=== PATIENT | female | born 1940 | race Caucasian/White ===

== ENCOUNTER → 2023-12-29 14:03 | Outpatient (REF) | payer MEDICARE, BC, SELFPAY | LOC: RAD 14:03 | PROVIDERS: ATTENDING PHYSICIAN Internal Medicine | DX: R05.3 Chronic cough (principal) | CPT/HCPCS: 71046 ==

== ENCOUNTER 2024-02-17 16:46 | Emergency (ER) | payer MEDICARE, BC, SELFPAY ==
[2024-02-17] VITALS (7 sets, daily range): BP systolic 146–169; BP diastolic 56–78; BMI 24.2
[2024-02-17 17:13] LABS: % Basophils 0.4 % (0-2); % Eosinophils 0.4 % (0-6); % Immature Granulocytes 0.4 % (0-0.5); % Lymphocytes 12.2 % (20.5-51.1); % Monocytes 5.2 % (1.7-9.3); % Neutrophils 81.4 % (42.2-75.2); Absolute Monocytes 0.4 10^3/uL (0.1-0.6); Absolute Neutrophils 6.7 10^3/uL (1.4-6.5); Hemoglobin 12.5 g/dL (12.0-16.0); Mean Corp Hgb Conc. 32.9 g/dL (33.0-37.0); Mean Corpuscular Hgb 27.8 pg (27.0-31.0); Mean Corpuscular Volume 84.6 fL (81.0-99.0); Mean Platelet Volume 8.6 fL (7.4-10.4); Nucleated Red Blood Cells % 0 %; Platelet Count 219 10^3/uL (130-400); Red Blood Cell Count 4.49 10^6/uL (4.20-5.40); Red Cell Dist. Width 16.1 % (11.5-14.5); White Blood Cell Count 8.3 10^3/uL (4.8-10.8)
[2024-02-17 17:22] LABS: ALT (SGPT) 15 U/L (0-35); AST (SGOT) 21 U/L (14-36); Alkaline Phosphatase 88 U/L (38-126); Blood Urea Nitrogen 9 mg/dl (7-17); Calcium 9.7 mg/dl (8.4-10.2); Carbon Dioxide 25 mmol/L (22-30); Chloride 100 mmol/L (98-107); Estimated Creatinine Clearance 50 ml/min; Glucose 122 mg/dl (70-99); Potassium 4.6 mmol/L (3.5-5.1); Sodium 137 mmol/L (135-145); Total Bilirubin 0.2 mg/dl (0.2-1.3); Total Protein 6.5 g/dl (6.3-8.2); eGFR > 60.00
[2024-02-17] MEDS: LOPRESSOR 12.5 MG PO (18:42)
[2024-02-17] MEDS: ZOFRAN ODT (ORALLY DISINTEGRATING) 4 MG PO (18:42)
--- NOTE | 2024-02-17 18:50 | ED.GENMED ---
History of Present Illness
General
Chief Complaint: Weakness
Source: patient and records
Exam Limitations: none
Time Seen by Provider: 02/17/24 17:25
Nursing documentation reviewed up to this point in time: agreed with
History of Present Illness
History of Present Illness:
Patient is an 83-year-old female who presents to the emergency department stating she feels funny in her head and her blood pressure was up. Started today. Patient denies any previous history. Patient does feel unsteady. Patient states that when
she turns her head or changes position is when she starts feeling unsteady and as though the room is moving. Patient gets waves of nausea with it but is not vomiting. Patient denies any headaches, tinnitus, visual changes. Patient denies any
focal weakness or speech difficulties. Patient states that she feels tight in her head but no headaches. Patient denies any recent injuries, falls, illnesses. Patient denies any fever or chills, upper respiratory symptoms. Patient denies chest
pain, shortness of breath or palpitations. Patient denies any previous history of similar episodes
Past History
Past History
ED Past Medical History: CVA, HTN, NIDDM, Other (ADRENAL INSUFFICIENCY, ELEVATED CHOLESTEROL, DVT/PE) and Other (Hypertension, previous stroke)
ED Past Surgical History: Negative Cardiac
Social History
Tobacco: Non-smoker
Alcohol: None
Drug: None
Personal: Other
Living: alone
Employment: Retired
Family History
Family History: Other (stroke)
Review of Systems
Review of Systems
All Other Systems: ROS reviewed and negative except as documented in HPI and ROS
Constitutional: Reports fatigue; Denies fever or chills
EENT: Reports no symptoms
Respiratory: Reports no symptoms
Cardiac: Reports no symptoms
ABD/GI: Reports nausea; Denies abdominal pain, vomiting, diarrhea or constipated
: Reports no symptoms
Musculoskeletal: Reports no symptoms
Skin: Reports no symptoms
Neurological: Denies dizzy, headache, weakness or numbness
Hematologic/Lymphatic: Reports no symptoms
Phy Exam
Physical Exam
Physical Exam:
Physical Exam
General: No apparent distress, alert and appropriate, well nourished, well hydrated
HENT: Normocephalic, supple with no lymphadenopathy, no thyromegaly
Eyes: Clear sclera, conjuctiva without injection, visual maldonado intact, no nystagmus
Heart: Regular rhythm and rate. No S3, S4. No murmur. No NVD, bruit
Lungs: No respiratory distress, no stridor, lung sounds clear and equal bilaterally
Abdomen: Soft, nontender, no organomegaly, no CVA tenderness, BS good
Neuro: Alert and oriented x 3, CN II - XII intact, no motor focality, no cerebellar dysfunction
Skin: no rash
Psychiatric: well kept. interactive and cooperative
Extremities: No edema, cyanosis, tenderness, Good and equal peripheral pulses.
Scores
Heart Failure Risk
Heart Failure Risk Score: Not Applicable
Heart Score for Chest Pain Patients
STEMI patient?: Not applicable
Withdrawal Assessment of Alcohol
Withdrawal Assessment Completed?: Not applicable
Course
Orders/Labs/Results
Orders:
Orders
02/17/24 16:57
Complete Blood Count/With Diff Urgent
Comprehensive Metabolic Panel Urgent
02/17/24 17:40
Ondansetron Orally Disint [Zofran Odt (Orally Disintegrating)] 4 mg PO NOW STA
02/17/24 17:41
CT Head W/o Iv Contrast Urgent
Comment:
Reason For Exam: elevated bp with vertigo
02/17/24 17:42
Electrocardiogram (*1) Urgent
Reason for Study: Vertigo / Dizzy
EKG- Treatment ONCE
02/17/24 18:29
Metoprolol [Lopressor] 12.5 mg PO NOW STA
02/17/24 20:13
Meclizine [Antivert] 25 mg PO NOW STA
Abnormal Lab Results
02/17/24
16:57
MCHC 32.9 L g/dL
(33.0-37.0)
RDW 16.1 H %
(11.5-14.5)
Absolute Neuts (auto) 6.7 H 10^3/uL
(1.4-6.5)
Absolute Lymphs (auto) 1.0 L 10^3/uL
(1.2-3.4)
Neutrophils % 81.4 H %
(42.2-75.2)
Lymphocytes % 12.2 L %
(20.5-51.1)
Glucose 122 H mg/dl
(70-99)
02/17/24 16:57
02/17/24 16:57
Vital Signs
Initial and Last Documented VS:
Initial Vital Signs
Temp Pulse Resp BP Pulse Ox
98.8 F 63 16 169/73 98
02/17/24 16:51 02/17/24 16:51 02/17/24 16:51 02/17/24 16:51 02/17/24 16:51
Last Documented Vital Signs
Temp Pulse Resp BP Pulse Ox
98.8 F 60 16 158/56 96
02/17/24 16:51 02/17/24 22:00 02/17/24 16:51 02/17/24 22:00 02/17/24 22:00
*Radiology
Radiology exam reviewed: radiology read reviewed
*Pulse Oximetry
Patient hypoxic: no
*EKG
Interpreted by ED Provider?: Yes
EKG Intrepretation Date: 02/17/24
EKG Intrepretation Time: 21:06
Interpretation: abnormal
Comparison EKG: no changes
Heart Rate: 62
Rate: normal
Rhythm: sinus
[place]: left axis deviation
Interval: normal interval
QRS Pattern: left vent hypertrophy
Ischemia: non-specific ST changes
*Squad Boss Interpretation
Rate: normal
Interpretation: normal
Heart Rate: 62
Rhythm: sinus
*Critical Care Note
Total Time (30-74mins, 75-104mins- exclusive of procedures): Not Applicable
Update Note
Update Note:
This appears to be a positional vertigo. Patient's blood pressure will be increased to 25 mg a day from -05/11. In addition the patient will be placed on Antivert
ED Attending Note
-
Portions of this chart may have been created with voice recognition software.� Occasional wrong word or��sound alike� substitutions may have occurred due to the inherent limitations of voice recognition software.
Discharge Plan
Departure
Patient Disposition: Senior Living/SNF
Date of Disposition: 02/17/24
Time of Disposition: 21:08
Patient with high blood pressure during this ER visit?: Yes
Condition: Fair
Covid-19: Not Applicable
Discharge Problem:
Vertigo, Hypertension
Instructions: Vertigo (a type of dizziness), Vestibular Exercises, BLOOD PRESSURE, Hypertention
Prescriptions:
New
meclizine [Antivert] 25 mg Tablet,Chewable
25 mg PO Q8HPRN PRN (Reason: nausea or vertigo) Qty: 25 0RF
No Action
prednisone 5 mg Tablet
5 mg PO DAILY
methenamine hippurate 1 gram Tablet
1 g PO DAILY
methotrexate sodium 2.5 mg Tablet
15 mg PO SA
repaglinide 1 mg Tablet
1 mg PO BID@0800,1700
Xarelto 20 mg Tablet
20 mg PO HS
glimepiride 2 mg tablet
1 mg PO DAILY
levothyroxine 25 mcg Tablet
25 mcg PO DAILY
aripiprazole 2 mg Tablet
2 mg PO DAILY Qty: 0 0RF
alprazolam 0.5 mg Tablet
0.5 mg PO HS Qty: 0 0RF
pantoprazole 40 mg Tablet,Delayed Release (Dr/Ec)
40 mg PO DAILY Qty: 0 0RF
ferrous sulfate [FeroSul] 325 mg (65 mg iron) Tablet
325 mg PO DAILY Qty: 0 0RF
metoprolol succinate 25 mg Tablet Extended Release 24 Hr
12.5 mg PO DAILY Qty: 0 0RF
duloxetine 30 mg Capsule,Delayed Release(Dr/Ec)
30 mg PO DAILY Qty: 0 0RF
melatonin 5 mg Tablet
5 mg PO HS Qty: 0 0RF
potassium chloride 20 mEq Tablet Extended Release
10 meq PO BID Qty: 0 0RF
Referrals:
YAIMA SALAZAR MD [Family Provider] - Follow up in 5-7 days
Activity Restrictions/Additional Instructions:
Increase metoprolol to 25 mg a day from 12.5 mg. Otherwise continue present medications and therapy.
Interventions
Interventions:
*Risk Screen - Suicide Last Done: 02/17/24 16:51
*General Assessment Last Done: 02/17/24 16:51
*Neglect/Abuse Screening Last Done: 02/17/24 16:51
*ED COVID-19 Vaccine History Last Done: 02/17/24 16:51
ED- Cardiac Assessment Last Done: 02/17/24 16:54
ED- Neurological Assessment Last Done: 02/17/24 16:54
ED- Pulmonary Assessment Last Done: 02/17/24 16:54
Discharge Date and Time
Print Language: AMHARIC
[2024-02-17] MEDS: ANTIVERT 25 MG PO (20:23)
== END 2024-02-18 00:51 ==
LOC: EMR 16:46
PROVIDERS: EMERGENCY PHYSICIAN Emergency Medicine; FAMILY PHYSICIAN Internal Medicine
DX: R42 Dizziness and giddiness (principal); R53.1 Weakness; R11.0 Nausea; R53.83 Other fatigue; I10 Essential (primary) hypertension; E11.9 Type 2 diabetes mellitus without complications; E78.00 Pure hypercholesterolemia, unspecified; D64.9 Anemia, unspecified; K21.9 Gastro-esophageal reflux disease without esophagitis; M19.90 Unspecified osteoarthritis, unspecified site; Z85.828 Personal history of other malignant neoplasm of skin; Z91.51 Personal history of suicidal behavior; Z86.718 Personal history of other venous thrombosis and embolism; Z86.73 Personal history of transient ischemic attack (TIA), and cerebral infarction without residual deficits; Z86.711 Personal history of pulmonary embolism; Z79.01 Long term (current) use of anticoagulants; Z79.84 Long term (current) use of oral hypoglycemic drugs; Z88.5 Allergy status to narcotic agent; Z88.2 Allergy status to sulfonamides
CPT/HCPCS: 70450; 80053; 85025; 93005; 99284

== ENCOUNTER → 2024-03-15 11:33 | Outpatient (REF) | payer MEDICARE, BC, SELFPAY | LOC: RAD 11:33 | PROVIDERS: ATTENDING PHYSICIAN Physician Assistant | DX: J84.9 Interstitial pulmonary disease, unspecified (principal) | CPT/HCPCS: 71250 ==

== ENCOUNTER → 2024-03-29 10:39 | Outpatient (REF) | payer MEDICARE, BC, SELFPAY ==
[2024-03-31 12:50] LABS: Quantiferon Mitogen minus NIL 6.71 IU/mL; Quantiferon NIL 0.01 IU/mL; Quantiferon Plus TB1 minus NIL 0.01 IU/mL (<=0.34); Quantiferon TB Gold Plus Negative (Negative)
== END ==
LOC: REG 10:39
PROVIDERS: ATTENDING PHYSICIAN Internal Medicine Rheumatology
DX: M06.9 Rheumatoid arthritis, unspecified (principal)
CPT/HCPCS: 36415; 86480

== ENCOUNTER 2025-05-02 18:09 | Emergency (ER) | payer MEDICARE, BC, SELFPAY ==
[2025-05-02 18:12] VITALS: BP 158/95
[2025-05-02 20:35] VITALS: BP 133/69
--- NOTE | 2025-05-02 20:46 | ED.GENMED ---
History of Present Illness
General
Chief Complaint: Musculo-Skeletal Complaint
Time Seen by Provider: 05/02/25 20:28
History of Present Illness
History of Present Illness:
Patient is a 84-year-old woman with history of DVT on Coumadin presenting to the emergency department right-sided rib pain. Patient states that she choked on dinner. Multiple people completed the Heimlich maneuver successfully. Since the event
patient been having right-sided rib pain. No chest pain. No shortness of breath. No abdominal pain. She denies any loss of consciousness. At this time patient has no complaints besides for pain where the Heimlich was performed
Past History
Past History
ED Past Medical History: CVA, HTN, NIDDM, Other (ADRENAL INSUFFICIENCY, ELEVATED CHOLESTEROL, DVT/PE) and Other (Hypertension, previous stroke)
ED Past Surgical History: Negative Cardiac
Social History
Tobacco: Non-smoker
Alcohol: None
Drug: None
Personal: Other
Living: alone
Employment: Retired
Family History
Family History: Other (stroke)
Phy Exam
Physical Exam
Physical Exam:
GENERAL: in no acute distress
HEENT: normocephalic, extraocular movements intact, moist oral mucosa
NECK: normal inspection
RESPIRATORY: no respiratory distress, clear to auscultation bilaterally
Chest: Right lateral rib tenderness over 8/9 no crepitus
CARDIOVASCULAR: regular rate and rhythm
ABDOMEN/: soft, non-distended, non-tender to palpation, no rebound or guarding
EXTREMITIES: non-tender, no edema/swelling
NEUROLOGIC: awake and alert, moves all extremities
SKIN: warm
Course
Orders/Labs/Results
Orders:
Orders
05/02/25 18:15
Ribs, Right 3 View W/PA Chest [CR Ribs-right 3 Vw W/pa Chest*] Urgent
Comment:
Reason For Exam: pain
05/02/25 20:44
Acetaminophen [Tylenol] 1,000 mg PO NOW STA
Lidocaine [Lidocaine 4% Patch] 1 patch TOPICAL NOW STA
Apply Lidocaine patch(s) to:: right ribs
Incentive Spirometry [Rx Incentive Spirometry] [RESP] Urgent
Frequency: q1h while awake
Vital Signs
Initial and Last Documented VS:
Initial Vital Signs
Temp Pulse Resp BP Pulse Ox
98.1 F 85 15 158/95 95
05/02/25 18:12 05/02/25 18:12 05/02/25 18:12 05/02/25 18:12 05/02/25 18:12
Last Documented Vital Signs
Temp Pulse Resp BP Pulse Ox
97.7 F 83 16 133/69 99
05/02/25 20:35 05/02/25 20:35 05/02/25 20:35 05/02/25 20:35 05/02/25 20:47
MDM/Problems Addressed
Differential Diagnosis Includes:
Patient is a 84-year-old woman presenting to the emergency department with rib pain after family perform the [employer]. On arrival vitals unremarkable. Exam does show point tenderness over the lateral 8th and 9th ribs. Concern for fracture versus
contusion. Lungs are clear bilaterally so less likely to be pneumothorax. X-ray obtained prior to my evaluation. Per my interpretation consistent with nondisplaced rib fractures of 8th and 9th ribs. Will pain control. Will obtain incentive
spirometer.
*Pulse Oximetry
SaO2: 99
Oxygen Mode of Delivery: Room air
Patient hypoxic: no
*Critical Care Note
Total Time (30-74mins, 75-104mins- exclusive of procedures): Not Applicable
Update Note
Update Note:
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 Pain has been controlled. Will discharge patient at this time.
ED Attending Note
-
Portions of this chart may have been created with voice recognition software.� Occasional wrong word or��sound alike� substitutions may have occurred due to the inherent limitations of voice recognition software.
Discharge Plan
Departure
Patient Disposition: Home (Routine Discharge)
Date of Disposition: 05/02/25
Time of Disposition: 21:45
Patient with high blood pressure during this ER visit?: Yes
Discharge Problem:
Fractured rib
Instructions: Rib fracture or bruised rib - ED (DC)
Prescriptions:
No Action
prednisone 5 mg Tablet
5 mg PO DAILY
methenamine hippurate 1 gram Tablet
1 g PO DAILY
methotrexate sodium 2.5 mg Tablet
15 mg PO SA
repaglinide 1 mg Tablet
1 mg PO BID@0800,1700
Xarelto 20 mg Tablet
20 mg PO HS
glimepiride 2 mg tablet
1 mg PO DAILY
levothyroxine 25 mcg Tablet
25 mcg PO DAILY
aripiprazole 2 mg Tablet
2 mg PO DAILY Qty: 0 0RF
alprazolam 0.5 mg Tablet
0.5 mg PO HS Qty: 0 0RF
pantoprazole 40 mg Tablet,Delayed Release (Dr/Ec)
40 mg PO DAILY Qty: 0 0RF
ferrous sulfate [FeroSul] 325 mg (65 mg iron) Tablet
325 mg PO DAILY Qty: 0 0RF
metoprolol succinate 25 mg Tablet Extended Release 24 Hr
12.5 mg PO DAILY Qty: 0 0RF
duloxetine 30 mg Capsule,Delayed Release(Dr/Ec)
30 mg PO DAILY Qty: 0 0RF
melatonin 5 mg Tablet
5 mg PO HS Qty: 0 0RF
potassium chloride 20 mEq Tablet Extended Release
10 meq PO BID Qty: 0 0RF
meclizine [Antivert] 25 mg Tablet,Chewable
25 mg PO Q8HPRN PRN (Reason: nausea or vertigo) Qty: 25 0RF
Referrals:
NONE,* [Family Provider, Internal Medicine]
Activity Restrictions/Additional Instructions:
Thank You for choosing [facility].
It was a pleasure meeting you and taking part in your care.
You were seen in the Emergency Department today for rib pain. While you were here we performed an x-ray which did show fractures of your right 8th and 9th rib. Please use the incentive spirometer a few times every hour. You may use Tylenol as well
as a lidocaine patch for pain.
We would like for you to follow up with your primary care physician for further evaluation. If you experience fever, worsening of your symptoms, or develop any other new or concerning symptoms, please return to the Emergency Department immediately.
Please see the attached sheet for additional information.
Interventions
Interventions:
*General Assessment Last Done: 05/02/25 18:12
*Neglect/Abuse Screening Last Done: 05/02/25 18:12
*ED COVID-19 Vaccine History Last Done: 05/02/25 20:37
*ED Influenza Vaccine History Last Done: 05/02/25 20:37
[facility] Risk Assessment Tool Last Done: 05/02/25 20:39
*Risk Screen - Suicide (C-SSRS) Last Done: 05/02/25 18:12
ED-Musculoskeletal Assessment Last Done: 05/02/25 20:38
Discharge Date and Time
Print Language: ROMANIAN
[2025-05-02] MEDS: TYLENOL 1000 MG PO (21:09)
[2025-05-02] MEDS: LIDOCAINE 4% PATCH 1 PATCH TOPICAL (21:10)
== END 2025-05-02 21:59 | disposition home or self-care (01) ==
LOC: EMR 18:09
PROVIDERS: EMERGENCY PHYSICIAN Student in an Organized Health Care Education/Training Program
DX: S22.41XA Multiple fractures of ribs, right side, initial encounter for closed fracture (principal); R09.89 Other specified symptoms and signs involving the circulatory and respiratory systems; M96.89 Other intraoperative and postprocedural complications and disorders of the musculoskeletal system; Y99.8 Other external cause status; Z79.01 Long term (current) use of anticoagulants; I10 Essential (primary) hypertension; Z86.718 Personal history of other venous thrombosis and embolism
CPT/HCPCS: 99283; 71101